=== PATIENT | male | born 1930 | race Caucasian/White ===

== ENCOUNTER 2017-02-10 10:11 | Emergency (ER) | payer MEDICARE ==
[~2017-02-10] VITALS: Ht 162.6 cm; Wt 84.6 kg
--- NOTE | ~2017-02-10 | HP ---
Unit #: [id number] #: [id number] Patient: KARYN CIFUENTES [id number] [facility] [address] [facility] [place] [facility]. [place], [place] [address] [id number] E MR#: [id number] NAME: KARYN CIFUENTES ROOM: Age: 86 Sex: M Admission Date: 02/10/2017 : 1930 Attending Physician: Altagracia Gale M.D. Primary Care Physician: Joanna Machuca M.D. HISTORY AND PHYSICAL HISTORY OF PRESENT ILLNESS This is an 86-year-old white male known to Dr. Ocampo with a past medical history of previous admission to [facility] August 2015 for acute respiratory failure, atrial fibrillation with rapid ventricular response, acute diastolic congestive heart failure. The patient was also seen for anemia with concern for GI bleed. He underwent an EGD on August 25, 2015 which revealed moderate antral erosive gastritis and focal patchy erosive moderate duodenitis. He was placed on Protonix. He is no longer taking aspirin but is on Pradaxa for atrial fibrillation. Additional past medical history includes coronary artery disease status post cardiac catheterization October 2006. Left main and right coronary artery were normal, mild LAD with 20%. There was a diagonal branch with 99% at origin in the anterior division. The patient was managed medically. A 2D echocardiogram was completed August 23, 2015 and revealed an ejection fraction of 50% to 55% with mild mitral and tricuspid regurgitation as well as ayfm-ay-arsnaonw aortic regurgitation. The patient is known to have sick sinus syndrome status post permanent pacemaker with reported generator exchange last year. He is known to have hypertension, hyperlipidemia, chronic kidney disease, and reformed tobacco abuse. He presented to the emergency department with complaints of dizziness. He states that he exercises on a treadmill at 2.5 miles per hour for about 30 minutes most days of the week. Today he was exercising on the machine. At the end of exercise, he turned his head and got off the machine. He felt very dizzy and had some blurred vision. He was unsteady but was able to get up his basement steps. When he got upstairs, he was nauseated and had broke out in a sweat. He denies chest pain. There are no reports of fall or syncope. He denies significant history of dizziness. There are no reports of palpitations, PND, orthopnea, or lower extremity edema. He has been taking all of his medications. He follows with Dr. Machuca with primary care and Dr. Amezcua with pulmonology. He sees Dr. Quiñonez due to chronic kidney disease. In the emergency department, his temperature was 97.5, pulse 70, respirations 16, blood pressure 147/64 with an O2 saturation of 94%. He was given one dose of aspirin. EKG revealed a paced rhythm. Initial point of care troponin was negative. Chemistry revealed a creatinine of 2 which is at the patient's baseline. CBC was normal. Orthostatic vital signs were obtained and revealed a supine blood pressure of 147/70 with a standing blood pressure of 138/76. The patient's symptoms have resolved and he is requesting to be discharged home from the emergency department. Dr. Ocampo has cleared the patient for discharge but would like an Unit #: [id number] #: [id number] Patient: CIFUENTESKARYN ultrasound of the carotids to rule out carotid or vertebral artery disease. Once the ultrasound is completed, the patient will be discharged home. His Lasix will be decreased to avoid hypotension. He has been encouraged to seek medical attention if his symptoms recur. PAST MEDICAL HISTORY 1. Previous admission to [facility] August 2015 for acute respiratory failure, atrial fibrillation with rapid ventricular response, and acute diastolic congestive heart failure. Treated for anemia with concern for GI bleed. Status post EGD on August 25, 2015, which revealed moderate prepyloric antral erosive gastritis and focal patchy erosive moderate duodenitis. 2. A 2D echocardiogram, August 23, 2015, revealed an ejection fraction of 50% to 55%. Mild LVH. RV and RA mildly to moderately dilated. Mild mitral and tricuspid regurgitation. Azih-mz-qudoqcdw aortic regurgitation. 3. Coronary artery disease, status post cardiac catheterization October 31, 2006 which revealed left main and right coronary artery normal. Mid LAD 20%. Diagonal 99% origin in the anterior division. Medical management. 4. Chronic diastolic congestive heart failure. 5. Atrial fibrillation on long-term anticoagulation with Pradaxa. 6. Sick sinus syndrome with history of permanent pacemaker, status post reported generator change last year. 7. Hypertension. 8. Hyperlipidemia. 9. Chronic kidney disease. 10. Obstructive sleep apnea. 11. Renal carcinoma, status post right nephrectomy. 12. Reformed tobacco abuse. PAST SURGICAL HISTORY 1. Permanent pacemaker. 2. Right nephrectomy. 3. Cardiac catheterization. HOME MEDICATIONS A list of home medications per last office note included: 1. Calcitriol 0.25 mcg. 2. Carvedilol 25 mg p.o. b.i.d. 3. Digoxin 0.125 mg p.o. daily. 4. Diltiazem ER 90 mg p.o. b.i.d. 5. Furosemide 20 mg p.o. b.i.d. 6. Nitroglycerin 0.4 mg sublingual as needed. 7. Pantoprazole 40 mg p.o. daily. 8. Pradaxa 75 mg p.o. b.i.d. 9. Crestor 10 mg p.o. nightly. 10. Sodium bicarbonate 650 mg p.o. b.i.d. 11. Uloric 40 mg p.o. daily. Of note, the patient's diltiazem was supposed to be stopped in December 2016. It is unclear if he stopped taking this medication or not. ALLERGIES No known allergies. SOCIAL HISTORY The patient lives in a private residence with his . He exercises on a Unit #: [id number] #: [id number] Patient: KARYN CIFUENTES regular basis on his treadmill. He is reformed smoker and quit smoking in July 1965. There are no reports of heavy alcohol use, but he drinks on occasion. FAMILY HISTORY Noncontributory for coronary artery disease. REVIEW OF SYSTEMS A 10-point review of systems is negative except for details above in HPI. PHYSICAL EXAMINATION VITAL SIGNS: Temperature 97.5, pulse 67, blood pressure 147/70. CONSTITUTIONAL: This is an 86-year-old white male in no acute distress. SKIN: Warm and dry. NECK: Supple. No jugular vein distention. No hepatojugular reflux. Normal carotid upstrokes. No carotid bruits auscultated. HEART: S1, S2. No murmurs, rubs, or gallops. LUNGS: Bilateral breath sounds have good air entry throughout all lung fenton. Respirations even and nonlabored. No rales, rhonchi, or wheezes. ABDOMEN: Soft, nontender, nondistended. Positive bowel sounds auscultated x4 quadrants. No ascites noted. EXTREMITIES: Lower extremities have no pretibial pitting edema. DP and PT pulses 2+. Capillary refill less than 3 seconds. DIAGNOSTIC STUDIES LABORATORY: White blood cell count 6.6, hemoglobin 15.5, hematocrit 45.7, platelets 116,000. Sodium 141, potassium 4.3, chloride 104, CO2 of 30, BUN 28, creatinine 2, glucose 105. AST 17, ALT 14, alkaline phosphatase 38. BNP 66. INR 1.4. Initial troponin negative. IMAGING: Chest x-ray reveals no acute findings. CARDIOVASCULAR: Electrocardiogram reveals a paced rhythm, left axis deviation, QTc 393 ms. IMPRESSION 1. Near syncope. 2. Rule out vertebrobasilar insufficiency. 3. Rule out postural hypotension. 4. Paroxysmal atrial fibrillation and sick sinus syndrome, status post permanent pacemaker. 5. Chronic diastolic congestive heart failure, compensated. 6. Chronic kidney disease, currently at baseline. 7. History of hypertension. 8. Hyperlipidemia. 9. Coronary artery disease per cardiac catheterization, October 2006, which revealed a 20% stenosis in the mid LAD and 99% stenosis in the origin of the diagonal in the anterior division. Medical management. 10. Left ventricular ejection fraction 50% to 55% with mild mitral and tricuspid regurgitation and pdxh-na-ztoqbxmq aortic regurgitation per 2D echocardiogram August 2015. 11. History of anemia and possible gastrointestinal bleed. 12. Mild thrombocytopenia. 13. Reformed tobacco abuse. PLAN 1. The patient presented to the hospital with complaints of dizziness, nausea, and diaphoresis. Unit #: [id number] #: [id number] Patient: KARYN CIFUENTES 2. Orthostatic vital signs are negative, but the patient does have a 9 mmHg drop with standing. 3. His Lasix has been decreased to 20 mg p.o. daily. His diltiazem has been stopped. 4. Vertebrobasilar insufficiency cannot be ruled out. The patient has been recommended to undergo an ultrasound of the carotids and vertebrals. 5. Once the ultrasound is completed, the patient can be discharged home from the emergency department. 6. There are no reports of chest pain or evidence of congestive heart failure on exam. The patient was going to have a cardiac catheterization recently but due to his chronic kidney disease the test was not scheduled. 7. He has been instructed to seek medical attention if his symptoms recur. 8. A followup appointment has been arranged with Dr. Ocampo on February 27, 2017 at 12 p.m. Dictated by Justina Garcia APRN for Jed Andres TD: 02/10/2017 15:55 JOB #: [id number] HISTORY AND PHYSICAL Page 1 of 1 X X HISTORY AND PHYSICAL
--- NOTE | ~2017-02-10 | EKG ---
PATIENT: KARYN CIFUENTES UNIT #: [id number] Ventricular Rate: 68 BPM Atrial Rate: 68 BPM P-R Interval: 288 ms QRS Duration: 84 ms Q-T Interval: 370 ms QTC Calculation(Bezet): 393 ms Calculated R [place]: -33 degrees Calculated T [place]: 22 degrees Diagnosis Line: Atrial-paced rhythm with prolonged AV conduction Diagnosis Line: Left axis deviation Diagnosis Line: Abnormal ECG Diagnosis Line: When compared with ECG of 22-AUG-2015 08:05, Diagnosis Line: Electronic atrial pacemaker has replaced Atrial Diagnosis Line: fibrillation Diagnosis Line: QT has shortened Diagnosis Line: Confirmed by MIGUEL KHAN MD ([id number]) on 02/10/2017 Diagnosis Line: 7:59:14 PM INTERPRETING MD: BILL MONTERROSO
--- NOTE | ~2017-02-10 | US37 ---
[facility] A Service of [facility] RADIOLOGY TEXT RESULTS PATIENT: KARYN CIFEUNTES LOCATION: [facility] : [birth year] UNIT #: [id number] AGE: [address]: Altagracia Gale MD SEX: M ORDER DR: [id number] [facility] [address] [place], [place] [address] [id number] E MR#: [id number] Acc #: [id number] NAME: KARYN CIFUENTES : 1930 SEX: M STUDY DATE/TIME: 02/10/2017 14:54 UNIT: [facility] ROOM: STUDY DESCRIPTION: US Carotid W/Doppler Bilateral Attending Physician: Altagracia Gale M.D. Ordering Physician: Jarred Ocampo M.D. Primary Care Physician: Joanna Machuca M.D. MEDICAL IMAGING REPORT This report is preliminary unless electronic signature is present EXAM Bilateral carotid duplex. HISTORY Dizziness. FINDINGS Duplex imaging of the carotid arteries was performed. The right common, internal, and external carotid arteries are widely patent with no plaque or stenosis. Velocity in the right common carotid is 56, internal is 44, and external is 61 cm/sec. Right ICA/CCA ratio is 1.1. On the left side, minimal plaque is seen the left carotid bifurcation. Velocity in the left common carotid is 51, internal is 50, and external is 64 cm/sec. Left ICA/CCA ratio is 1.4. Antegrade flow is seen in the right and left vertebral arteries. IMPRESSION The right internal carotid artery is normal. Minimal plaque is seen in the left internal carotid artery. No hemodynamically significant stenosis is seen bilaterally. Antegrade flow is seen in the right and left vertebral arteries. Dictated by..Aylin Ramirez M.D. THIS IS AN ELECTRONICALLY VERIFIED REPORT [facility] A Service of [facility] RADIOLOGY TEXT RESULTS PATIENT: KARYN CIFUENTES LOCATION: [facility] : [birth year] UNIT #: [id number] AGE: [address]: Altagracia Gale MD SEX: M ORDER DR: Jon Ramirez M.D. at 02/12/2017 9:59 AM /mohinder TD: 02/10/2017 22:42 JOB #: [id number] MEDICAL IMAGING REPORT Page 1 of 1 COPY
--- NOTE | ~2017-02-10 | CR72 ---
[facility] A Service of [facility] RADIOLOGY TEXT RESULTS PATIENT: KARYN CIFUENTES LOCATION: [facility] : [birth year] UNIT #: [id number] AGE: [address]: Altagracia Gale MD SEX: M ORDER DR: [id number] [facility] [address] [place], [place] [address] [id number] E MR#: [id number] Acc #: [id number] NAME: KARYN CIFUENTES : 1930 SEX: M STUDY DATE/TIME: 02/10/2017 11:28 UNIT: [facility] ROOM: STUDY DESCRIPTION: CR Chest Single View Portable Attending Physician: Altagracia Gale M.D. Ordering Physician: Altagracia Gale M.D. Primary Care Physician: Joanna Machuca M.D. MEDICAL IMAGING REPORT This report is preliminary unless electronic signature is present EXAM Frontal chest 08/13/2016 INDICATIONS 86-year-old male with history of chest pain, near-syncopal episode this morning. Renal cancer. History of right nephrectomy. TECHNIQUE Frontal chest was performed COMPARISON 08/21/2015 FINDINGS Cardiac silhouette unremarkable. The vascularity is normal. There is some probable fibrosis and scarring in the left lung base. No effusion, dense consolidation or pneumothorax. Calcified granuloma in the right mid lung unchanged. IMPRESSION Probable atelectasis and scarring in the left lung base. Old healed granulomatous disease. Dictated by... Breezy Rossi M.D. THIS IS AN ELECTRONICALLY VERIFIED REPORT Breezy Rossi M.D. at 02/11/2017 7:19 AM CHUY/penelope TD: 02/10/2017 18:45 JOB #: [id number] [facility] A Service [facility] RADIOLOGY TEXT RESULTS PATIENT: KARYN CIFUENTES LOCATION: [facility] UNIT : [birth year] UNIT #: [id number] AGE: [address]: Altagracia Gale MD SEX: M ORDER DR: MEDICAL IMAGING REPORT Page 1 of 1 COPY
[~2017-02-10 10:11] MED LIST: AMLODIPINE BESYL5 MG PO; ASPIRIN PO; ASPIRIN81 M1 PO; ASPIRIN81 M2 PO; CALCITRIOL0.25 MCG PO; CARDIZEM60 MG PO; CARVEDILOL25 MG PO; COREG PO; COREG12.5 MG PO; CRESTOR10 MG PO; DELTASONE20 MG PO; DEMADEX PO; LANOXIN125 MCG PO; LASIX20 MG PO; LEVAQUIN PO; METOPROLOL SUCC50 MG PO; NITROGYLCERIN SUBLINGUAL; NORVASC PO; PLAVIX PO; PRADAXA75 MG PO; PROTONIX PO; SOD BICARBONATE PO; SODIUM BICARBO650 MG PO; TYLENOL EXTRA500 M1 PO; ULORIC; ULORIC40 MG PO; ULTRACET TABLET1 TAB PO; VITAMIN D50000 UNIT PO; VYTORIN 10-40 M1 TAB PO; VYTORIN 10/40 T1 TAB PO; VYTORIN PO; ZEMPLAR; ZITHROMAX500 MG PO
[2017-02-10 11:01] LABS: BASOPHIL% 0.5 % (0-2.5); EOSINOPHIL# 0.1 X10e3 (0-0.7); EOSINOPHIL% 1.4 % (0.0-7.0); HEMATOCRIT 45.7 % (38.0-50.0); HEMOGLOBIN 15.5 gm/dL (13.0-16.0); LYMPHOCYTE# 1.6 X10e3 (1.0-3.5); LYMPHOCYTE% 23.5 % (17.0-45.0); MEAN CELL VOLUME 96.5 FL (83-96); MEAN CORPUSCULAR HEMOGLOBIN 32.7 PG (28-34); MEAN CORPUSCULAR HGB CONC 33.9 g/dL (30-36); MONOCYTE# 0.7 X10e3 (0-1.0); MONOCYTE% 10.5 % (3.0-12.0); NEUTROPHIL# 4.3 X10e3 (1.5-7.1); NEUTROPHIL% 64.1 % (40-75); PLATELET COUNT 116 X10e3 (140-420); RED BLOOD COUNT 4.74 X10e (3.90-5.60); RED CELL DISTRIBUTION WIDTH 13.9 % (11.0-15.5); WHITE BLOOD COUNT 6.6 X10e3 (4.0-10.5)
[2017-02-10 11:05] LABS: DIFF IND NO
[2017-02-10 11:15] LABS: POC - CKMB 1.7 ng/mL (0.0-7.9); POC - TROPONIN <0.05 ng/mL (<=0.05)
[2017-02-10 11:21] LABS: INR 1.4; PROTHROMBIN TIME (PATIENT) 14.7 SECONDS (10.0-11.7)
[2017-02-10 11:31] LABS: ALBUMIN SERUM 3.9 g/dL (3.5-5.0); BILIRUBIN, DIRECT 0.1 mg/dL (0.0-0.2); BILIRUBIN,INDIRECT 0.8 mg/dL (0.0-0.9); BILIRUBIN,TOTAL 0.9 mg/dL (0.2-2.0); CALCIUM SERUM 9.4 mg/dL (8.4-10.2); GLOM FILT RATE Estimated 29.1 mL/min (>60); POTASSIUM 4.3 mmol/L (3.5-5.1); PROTEIN TOTAL SERUM 7.3 g/dL (6.0-8.3)
[2017-02-10 14:31] LABS: POC - CKMB <1.0 ng/mL (0.0-7.9); POC - TROPONIN <0.05 ng/mL (<=0.05)
== END 2017-02-10 14:45 | disposition home or self-care (01) ==
LOC: CED 10:11
PROVIDERS: Emergency Medicine
DX: I25.10 Atherosclerotic heart disease of native coronary artery without angina pectoris (principal); R55 Syncope and collapse; I13.2 Hypertensive heart and chronic kidney disease with heart failure and with stage 5 chronic kidney disease, or end stage renal disease; N18.6 End stage renal disease; I50.9 Heart failure, unspecified; I48.91 Unspecified atrial fibrillation; Z79.01 Long term (current) use of anticoagulants; E78.5 Hyperlipidemia, unspecified; G47.33 Obstructive sleep apnea (adult) (pediatric); Z95.0 Presence of cardiac pacemaker; Z98.890 Other specified postprocedural states; Z90.5 Acquired absence of kidney; Z79.82 Long term (current) use of aspirin; Z79.899 Other long term (current) drug therapy
CPT/HCPCS: 36415; 71010; 80048; 80076; 82553; 83880; 84484; 85025; 85610; 85730; 93005; 93880; 99285